=== PATIENT | male | born 1990 | race Caucasian/White ===

== ENCOUNTER 2019-07-13 17:59 | Emergency (ER) | payer SELFPAY ==
[~2019-07-13] VITALS: Ht 180.3 cm; Wt 94.3 kg
[2019-07-13 18:12] VITALS: BP 130/75
--- NOTE | 2019-07-13 18:18 | NUR ---
ASSISTED PT TO WAIT IN THE LOBBY. URINE SAMPLE OBTAINED.
--- NOTE | 2019-07-13 18:55 | NUR ---
PT TAKEN TO BED 7.
--- NOTE | 2019-07-13 19:05 | NUR ---
29/M c/o redness to penis x1 week with irritation. Pt reports having unprotected sex x1 week ago. Denies dysuria or discharge. Denies pain.
[2019-07-13] MEDS ORDERED: PENICILLIN G BENZATHINE L-A 1.2 MU/2 ML SYR IM ONE (19:15)
[2019-07-13] MEDS ORDERED: AZITHROMYCIN 250 MG TAB PO ONE (19:15)
[2019-07-13] MEDS ORDERED: cefTRIAXone 250 MG in LIDOCAINE MPF 1% 0.9 ML IM ONE (19:15)
[2019-07-13] MEDS ORDERED: metroNIDAZOLE 250 MG TAB PO ONE (19:15)
[2019-07-13] MEDS ORDERED: LIDOCAINE MPF 1% 5 ML ONE (19:32)
[2019-07-13] MEDS ORDERED: cefTRIAXone 250 MG VIAL ONE (19:32)
--- NOTE | 2019-07-13 20:00 | NUR ---
[facility] WITH PT
[2019-07-13 20:09] VITALS: BP 130/75
--- NOTE | 2019-07-13 20:09 | NUR ---
Patient discharged with v/s stable. Written and verbal after care instructions given and explained. Patient alert, oriented and verbalized understanding of instructions. Ambulatory with steady gait. All questions addressed prior to discharge. ID band removed. Patient advised to follow up with PMD. Rx of acyclovir, ibuprofen were given given. Patient educated on indication of medication including possible reaction and side effects. Opportunity to ask questions provided and answered.
== END 2019-07-13 20:09 | disposition home or self-care (01) ==
LOC: MED 17:59
DX: N48.89 Other specified disorders of penis (principal); A64 Unspecified sexually transmitted disease
CPT/HCPCS: 96372; 99283; J0561; J0696; J2001